=== PATIENT | female | born 1950 | race Caucasian/White ===

== ENCOUNTER 2020-02-05 08:24 | Observation (INO) ==
[2020-02-05] MEDS ORDERED: NS 0.9% 1000 ml BAG 1,000 ML IV ONE (08:56)
[2020-02-05] MEDS ORDERED: cefTRIAXone 1 gm/50 mL NS BAG 1 GM/50 ML BAG IV ONE (08:56)
[2020-02-05 10:06] LABS: ABS Basophils 0.1 10^3/ul (0-0.2); ABS Lymphocytes 1.1 10^3/ul (1.0-4.8); ABS Monocytes 0.4 10^3/ul (0-0.8); Eosinophil % 0.4 %; Hematocrit 40 % (35-47); Hemoglobin 13.6 g/dL (12.0-16.0); Lymphocyte % 11.4 %; Mean Corpuscular HGB Conc 34 g/dL (31-36); Mean Corpuscular Hemoglobin 30 pg (27-31); Mean Corpuscular Volume 88 fL (80-97); Mean Platelet Volume 8.6 fL (7.4-10.4); Platelet Count 193 10^3/uL (150-450); Red Blood Count 4.51 10^6 /uL (3.70-4.87); Red Cell Distribution Width 13 % (10-15); White Blood Count 9.3 10^3/uL (3.5-10.8)
[2020-02-05 10:21] LABS: Albumin 3.7 g/dL (3.2-5.2); BUN/Creatinine Ratio 13.4 (8-20); C Reactive Protein 12.75 mg/L (<8.01); Calcium 9.6 mg/dL (8.6-10.3); EGFR African American 83.4 (>60); EGFR Non-African American 68.9 (>60); Globulin 3.7 g/dL (2-4); Potassium 3.7 mmol/L (3.5-5.0); Total Bilirubin 0.6 mg/dL (0.2-1.0); Total Protein 7.4 g/dL (6.4-8.9)
[2020-02-05] MEDS ORDERED: Iohexol 300 (CONTRAST) 10 ML SDV IV ONE (11:33)
[2020-02-05] MEDS ORDERED: Ondansetron 4 mg VIAL 2 MG/ML 2 ml VIAL IV PRN (15:33)
[2020-02-05] MEDS ORDERED: Enoxaparin 40 MG/0.4 ML SYR(*) SUBCUT SCH (16:00)
[2020-02-05] MEDS: metroNIDAZOLE IV 500 MG/100ML 500 MG/100 ML BAG IVPB SCH (21:16)
[2020-02-06 06:00] LABS: ABS Eosinophils 0.1 10^3/ul (0-0.6); ABS Lymphocytes 1.8 10^3/ul (1.0-4.8); ABS Monocytes 0.6 10^3/ul (0-0.8); Eosinophil % 0.6 %; Hematocrit 39 % (35-47); Hemoglobin 13.2 g/dL (12.0-16.0); Lymphocyte % 19.5 %; Mean Corpuscular HGB Conc 34 g/dL (31-36); Mean Corpuscular Hemoglobin 30 pg (27-31); Mean Corpuscular Volume 89 fL (80-97); Mean Platelet Volume 8.5 fL (7.4-10.4); Platelet Count 194 10^3/uL (150-450); Red Blood Count 4.39 10^6 /uL (3.70-4.87); Red Cell Distribution Width 13 % (10-15); White Blood Count 9.4 10^3/uL (3.5-10.8)
[2020-02-06] MEDS: metroNIDAZOLE IV 500 MG/100ML 500 MG/100 ML BAG IVPB SCH (09:29)
[2020-02-06] MEDS ORDERED: cefTRIAXone 1 gm/50 mL NS BAG 1 GM/50 ML BAG IVPB SCH (10:00)
[2020-02-06 10:28] VITALS: BP 152/81
== END 2020-02-06 12:58 | disposition home or self-care (01) ==
LOC: MEDTELE 08:24 → ED 08:24 → MEDTELE 16:12
PROVIDERS: ADMIT Hospitalist; ATTEND Internal Medicine

== ENCOUNTER 2023-07-30 10:28 | Observation (INO) ==
[2023-07-30 10:59] LABS: ABS Eosinophils 0.1 10^3/uL (0.0-0.5); ABS Lymphocytes 1.5 10^3/uL (1.0-4.8); ABS Monocytes 0.4 10^3/uL (0.0-0.9); ABS Neutrophils 5.6 10^3/uL (1.5-7.6); Eosinophil % 0.8 %; Hematocrit 38.6 % (35-45); Hemoglobin 12.9 g/dL (11.5-14.3); Lymphocyte % 19.3 %; Mean Corpuscular Hemoglobin 29.7 pg (27-33); Mean Corpuscular Hgb Conc 33.6 g/dL (31-36); Mean Corpuscular Volume 88.6 fL (80-97); Mean Platelet Volume 8.8 fL (7.5-11.2); Platelet Count 192 10^3/uL (150-450); Red Blood Count 4.35 10^6/uL (3.63-4.92); Red Cell Distribution Width 12.8 % (12-17); White Blood Count 7.6 10^3/uL (3.8-11.8)
[2023-07-30 11:07] LABS: INR 1.08 (0.83-1.13)
[2023-07-30 11:28] LABS: Albumin/Globulin Ratio 1.2 (1-3); Calcium 9.2 mg/dL (8.6-10.3); Creatinine, Serum 0.79 mg/dL (0.51-0.95); Globulin 3.4 g/dL (2-4); Potassium 3.7 mmol/L (3.5-5.0); Total Bilirubin 0.6 mg/dL (0.2-1.0); Total Protein 7.4 g/dL (6.4-8.9); eGFR CKD-EPI 78.4 (>60)
[2023-07-30 12:33] LABS: High Sensitivity Troponin 1 Hr 9 pg/mL (<15)
[2023-07-30] MEDS ORDERED: Enoxaparin 40 MG/0.4 ML SYR SUBCUT SCH (17:00)
[2023-07-31 05:59] LABS: Calcium 9.1 mg/dL (8.6-10.3); Creatinine, Serum 0.72 mg/dL (0.51-0.95); Potassium 3.5 mmol/L (3.5-5.0); eGFR CKD-EPI 87.7 (>60)
[2023-07-31 11:14] VITALS: BP 125/42
== END 2023-07-31 14:37 | disposition home or self-care (01) ==
LOC: EDHOLD 10:28 → ED 10:28 → EDHOLD 15:34 → MEDTELE 15:45
PROVIDERS: ADMIT Hospitalist; ATTEND Hospitalist

== ENCOUNTER 2023-09-15 16:51 | Inpatient (IN) ==
[2023-09-15 17:27] LABS: ABS Basophils 0.1 10^3/uL (0.0-0.1); ABS Lymphocytes 2.5 10^3/uL (1.0-4.8); ABS Monocytes 0.4 10^3/uL (0.0-0.9); ABS Neutrophils 6.4 10^3/uL (1.5-7.6); ABS Nucleated RBC 0.01 10^3/ul; Eosinophil % 0.3 %; Hematocrit 40.3 % (35-45); Hemoglobin 13.8 g/dL (11.5-14.3); Lymphocyte % 26.1 %; Mean Corpuscular Hemoglobin 30.2 pg (27-33); Mean Corpuscular Hgb Conc 34.3 g/dL (31-36); Mean Platelet Volume 8.9 fL (7.5-11.2); Nucleated Red Blood Cells % 0.1 %/100WBC (0.0-0.8); Platelet Count 227 10^3/uL (150-450); Red Blood Count 4.57 10^6/uL (3.63-4.92); Red Cell Distribution Width 12.7 % (12-17); White Blood Count 9.4 10^3/uL (3.8-11.8)
[2023-09-15 17:38] LABS: INR 1.04 (0.83-1.13)
[2023-09-15 17:44] LABS: Albumin 4.1 g/dL (3.2-5.2); Albumin/Globulin Ratio 1.2 (1-3); Creatinine, Serum 0.78 mg/dL (0.51-0.95); Globulin 3.4 g/dL (2-4); Magnesium 1.9 mg/dL (1.9-2.7); Potassium 3.8 mmol/L (3.5-5.0); Total Bilirubin 0.3 mg/dL (0.2-1.0); Total Protein 7.5 g/dL (6.4-8.9); eGFR CKD-EPI 79.7 (>60)
[2023-09-15 18:45] LABS: High Sensitivity Troponin 1 Hr 27 pg/mL (<15)
[2023-09-16] MEDS: Potassium Chlor 20 meq TAB.ER PO ONE (00:48)
[2023-09-16] MEDS: Magnesium Sulfate IV 1GM/100ML 1 GM/100 ML BAG IV ONE (00:49)
[2023-09-16] MEDS: NS 0.9% 1000 ml BAG 1,000 ML IV SCH (01:39)
[2023-09-16 06:44] LABS: ABS Eosinophils 0.1 10^3/uL (0.0-0.5); ABS Monocytes 0.5 10^3/uL (0.0-0.9); ABS Nucleated RBC 0.02 10^3/ul; Eosinophil % 1.3 %; Hematocrit 39.1 % (35-45); Hemoglobin 13.1 g/dL (11.5-14.3); Lymphocyte % 34.4 %; Mean Corpuscular Hemoglobin 29.6 pg (27-33); Mean Corpuscular Hgb Conc 33.4 g/dL (31-36); Mean Corpuscular Volume 88.5 fL (80-97); Mean Platelet Volume 9.1 fL (7.5-11.2); Nucleated Red Blood Cells % 0.2 %/100WBC (0.0-0.8); Platelet Count 211 10^3/uL (150-450); Red Blood Count 4.42 10^6/uL (3.63-4.92); Red Cell Distribution Width 12.4 % (12-17); White Blood Count 8.7 10^3/uL (3.8-11.8)
[2023-09-16 07:01] LABS: Calcium 9.2 mg/dL (8.6-10.3); Creatinine, Serum 0.75 mg/dL (0.51-0.95); Magnesium 2.3 mg/dL (1.9-2.7); Potassium 3.6 mmol/L (3.5-5.0); eGFR CKD-EPI 83.5 (>60)
[2023-09-16] MEDS ORDERED: Lidocaine 1% VIAL 10 MG/ML 30 ML VIAL ONE (08:41)
[2023-09-16] MEDS ORDERED: fentaNYL 100 mcg/2 ml 50 MCG/ML VIAL ONE (08:48)
[2023-09-16] MEDS ORDERED: Midazolam 5 mg/5 ml VIAL 1 mg/ml 5 ml VIAL (5 mg) ONE (08:48)
[2023-09-16] MEDS: Clindamycin 900 MG/D5W BAG 900 MG/50 ML BAG IVPB ONE (09:30)
[2023-09-16] MEDS: fentaNYL 100 mcg/2 ml 50 MCG/ML VIAL IV SLOW PU ONE (10:38)
[2023-09-16] MEDS: Midazolam 10 mg/10 ml VIAL 1 mg/ml 10 ml VIAL (10 mg) IV SLOW PU ONE (10:38)
[2023-09-16 15:02] VITALS: BP 149/75
== END 2023-09-16 15:50 | disposition home or self-care (01) | DRG 244 ==
LOC: ED 16:51 → EDHOLD 19:00 → SUATTDRO 19:00 → MEDTELE 20:32
PROVIDERS: ADMIT Internal Medicine; ATTEND Internal Medicine